=== PATIENT | female | born 1985 ===

== ENCOUNTER 2017-06-25 10:24 | Emergency (ER) | payer OTHER ==
[2017-06-25 10:45] VITALS: O2SAT 100
[2017-06-25] MEDS ORDERED: Naproxen 550 mg Tab PO STA (11:44)
[2017-06-25] MEDS ORDERED: Naproxen 550 mg Tab PO ONE (11:50)
--- NOTE | 2017-06-25 12:19 | C.PDOC ---
History Of Present Illness 31 yr old female presents to the ER stating for the past 4-5 months she has been having intermittent pain over the right breast. Patient reports family history of breast cancer and never had any medically check up for the breast pain. Denies fever, chills, chest pain, SOB, nausea, vomiting, skin changes over the breast or back pain. Time Seen by Provider: 06/25/17 11:15 Chief Complaint (Nursing): Breast Problem History Per: Patient History/Exam Limitations: no limitations Onset/Duration Of Symptoms: Intermittent Episodes (4-5 months) Current Symptoms Are (Timing): Still Present Past Medical History Reviewed: Historical Data, Nursing Documentation, Vital Signs Vital Signs: Last Vital Signs Temp 98.1 F 06/25/17 12:45 Pulse 101 H 06/25/17 12:45 Resp 14 06/25/17 12:45 BP 127/75 06/25/17 12:45 Pulse Ox 100 06/25/17 12:45 - Medical History PMH: Hypothyroidism Family History: States: CAD (Breast Cancer) - Social History Hx Alcohol Use: No Hx Substance Use: No - Immunization History Hx Tetanus Toxoid Vaccination: No Hx Influenza Vaccination: No Hx Pneumococcal Vaccination: No Review Of Systems Except As Marked, All Systems Reviewed And Found Negative. Constitutional: Negative for: Fever, Chills Cardiovascular: Positive for: Other ((+) Pain over the irght breast). Negative for: Chest Pain Respiratory: Negative for: Shortness of Breath Gastrointestinal: Negative for: Nausea, Vomiting Musculoskeletal: Negative for: Back Pain Physical Exam - Physical Exam Appears: Non-toxic, No Acute Distress Skin: Warm, Dry, No Rash Head: Atraumatic, Normacephalic Eye(s): bilateral: Normal Inspection, PERRL, EOMI Oral Mucosa: Moist Throat: No Erythema, No Exudate Neck: Normal ROM, Supple, Other ((+) muscle spasm to the right trapizus muscle) Chest: Symmetrical, No Tenderness, Other (Bilateral Breast - No erythema. No Tenderness. No swelling. No mass. No rash. No nipple dischagre.) Cardiovascular: Rhythm Regular, No Friction Rub, No Murmur Respiratory: Normal Breath Sounds, No Rales, No Rhonchi, No Stridor, No Wheezing Gastrointestinal/Abdominal: Soft, No Tenderness Extremity: Normal ROM, No Swelling Neurological/Psych: Oriented x3, Normal Speech, Normal Motor, Normal Sensation Gait: Steady ED Course And Treatment O2 Sat by Pulse Oximetry: 100 (RA) Pulse Ox Interpretation: Normal Medical Decision Making Medical Decision Making: PLAN: * Naproxen PO NOTE: Patient has a normal exam at this time. Instructed to follow up to get a mammogram. Disposition - Disposition Referrals: [facility] at [facility] [Outside] Disposition: HOME/ ROUTINE Disposition Time: 12:17 Condition: GOOD Additional Instructions: Follow up with the medical clinic for breast eval and mammogram scheduling. Return if worsened Prescriptions: Naproxen [Naprosyn] 500 mg PO BID #20 tab Instructions: Breast Care for the Non-breast Feeding Woman (ED), Muscle Spasm ( ED) Forms: [employer] (Welsh) - Clinical Impression Clinical Impression: Pain of breast, Muscle spasm - PA / [employer] / Resident Statement MD/DO has reviewed & agrees with the documentation as recorded. - Scribe Statement The provider has reviewed the documentation as recorded by the Scribe So Bunn All medical record entries made by the Scribe were at my direction and personally dictated by me. I have reviewed the chart and agree that the record accurately reflects my personal performance of the history, physical exam, medical decision making, and the department course for this patient. I have also personally directed, reviewed, and agree with the discharge instructions and disposition.
[2017-06-25 12:46] VITALS: BP 127/75; PULSE 101; RESP 14; TEMP 98.1
--- NOTE | 2017-06-27 23:17 | CARD ---
APPROVED REPORT EKG Measurement Heart [id number] <Conclusion> Normal sinus rhythm with sinus arrhythmia Normal ECG
== END 2017-06-25 12:45 | disposition home or self-care (01) ==
LOC: C.ER 10:24
DX: N64.4 Mastodynia (principal); M62.838 Other muscle spasm